=== PATIENT | female | born 1965 | race Caucasian/White ===

== ENCOUNTER 2016-08-21 08:04 | Emergency (ER) | payer OTHER ==
[2016-08-21 08:20] VITALS: BP 117/78; PULSE 104; RESP 18; TEMP 97.9; O2SAT 98
--- NOTE | 2016-08-21 08:25 | UCPHY ---
H & P Patient Type: Established Chief Complaint Nursing Narrative: sinus congestion/pressure, headache, cough x 3 weeks Time Seen by Provider: 08/21/16 08:15 HPI/ROS: Chief complaint: Sinus pressure, headache HPI: Patient is presenting with 3 weeks of headache behind her eyes, sinus congestion, cough and throat clearing. Patient's has been using over-the- counter nasal sprays with minimal relief. Ears feel little bit congested. No fevers or chills. Has had persistent facial headache. No nausea or vomiting. ROS: 10 point Review of Systems is negative except as noted in the HPI. Past medical history: Asthma Medications: Xopenex Allergies: No known drug allergies Social history: Nonsmoker, occasional alcohol Physical exam: Gen: Awake, Alert, No Distress HEENT: She has tenderness to percussion over the left maxillary and left frontal sinus Nose: no rhinorrhea Eyes: PERRLA, EOMI Mouth: Moist mucosa Neck: Supple, no JVD Chest: nontender, mild diffuse expiratory wheeze Skin: no rash Neuro: CN II-XII intact, Sensation grossly intact, Strength 5/5 in bilateral upper and lower extremities - Personal History LMP (Females 10-55): Hysterectomy Tetanus Vaccine Date: WITHIN 10 YRS - Medical/Surgical History Hx Asthma: Yes Hx Diabetes: No Other PMH: asthma, heart valve disease - Family History Significant Family History: No pertinent family hx - Social History Smoking Status: Never smoked Constitutional: Initial Vital Signs Temperature (C) 36.6 C 08/21/16 08:16 Heart Rate 104 H 08/21/16 08:16 Respiratory Rate 18 08/21/16 08:16 Blood Pressure 117/78 08/21/16 08:16 O2 Sat (%) 98 08/21/16 08:16 O2 Delivery Mode Room Air Allergies/Adverse Reactions: No Known Allergies Allergy (Verified 10/23/14 09:15) Home Medications: Medication Instructions Recorded Levalbuterol 0.63 mg [Xopenex 10/23/14 0.63MG Neb (RX)] Amoxicillin 500 mg PO TID 10 Days 08/21/16 Fluticasone Nasal [Flonase Nasal 2 sprays NASAL DAILY #1 mdi 08/21/16 [place] (RX)] Departure - Departure Disposition: Home, Routine, Self-Care Clinical Impression: Sinusitis Condition: Good Instructions: Sinusitis (ED) Additional Instructions: Use Flonase daily. Take your full course of antibiotics. You may use [id number] decongestants such as phenylephrine according to label instructions. Follow up with her primary care physician in about a week for recheck. Referrals: Camila Linton MD [Primary Care Provider] - As per Instructions Prescriptions: Amoxicillin 500 mg PO TID 10 Days Fluticasone Nasal [Flonase Nasal [place] (RX)] 2 sprays NASAL DAILY #1 mdi - PQRS PQRS Measurement: NA
== END 2016-08-21 08:36 | disposition home or self-care (01) ==
LOC: CED 08:04
DX: J32.9 Chronic sinusitis, unspecified (principal)
CPT/HCPCS: 99214-PO; G0463-PO

== ENCOUNTER → 2017-03-11 | Outpatient (CLI) | payer OTHER | LOC: CIMAGING 14:28 | PROVIDERS: ATTEND Family Medicine | DX: M25.511 Pain in right shoulder (principal); R07.81 Pleurodynia | CPT/HCPCS: 71101-PO; 73010-PO; 73030-PO ==

== ENCOUNTER → 2017-03-20 | Outpatient (CLI) | payer OTHER | LOC: CIMAGING 11:43 | PROVIDERS: ATTEND Family Medicine | DX: M53.3 Sacrococcygeal disorders, not elsewhere classified (principal); M54.5 Low back pain | CPT/HCPCS: 72100-PO; 72170-PO ==

== ENCOUNTER 2018-08-30 11:16 | Emergency (ER) | payer OTHER ==
[2018-08-30] MEDS ORDERED: IBUPROFEN 600 MG TAB PO ONE (11:54)
--- NOTE | 2018-08-30 12:43 | EDPHY ---
H & P Time Seen by Provider: 08/30/18 11:34 HPI/ROS: CHIEF COMPLAINT: Right knee pain, right ankle pain, left back History by patient HISTORY OF PRESENT ILLNESS: 52-year-old woman presents complaining of pain and swelling in her right knee, ankle and left back after slipping off a ladder and falling down a carpeted flight of stairs 3 days ago. Patient denies hitting her head or losing consciousness. She was able to get up on her own but said that she had some much pain she could barely get out of bed the following day. She has been ambulatory on her leg. She has been taking ibuprofen with some relief and using ice with some relief. She locates her knee pain mostly to the medial sided describes shooting pains upper thigh from the medial side of her knee. She denies any numbness tingling or weakness. She localizes her ankle pain to the posterior aspect of her ankle. She complains of pain in her left mid back over the posterior ribs. She says initially it hurt to breathe then but this has improved with time. She denies any shortness of breath currently. REVIEW OF SYSTEMS: As in HPI, and all other systems reviewed and are negative Smoking Status: Never smoked Physical Exam: General Appearance: Alert, nontoxic-appearing, comfortable. Head: normocephalic, atraumatic Eyes: Pupils equal and round, reactive to light, no pallor or injection. Extraocular movements intact TMs: Clear bilaterally, no hemotympanum Mouth: Mucous membranes moist. Oropharynx clear, dentition intact Neck: Full range of motion, no bony tenderness Respiratory: Normal, effort, lungs are clear to auscultation. No wheezes, rales or rhonchi. + posterior lateral mid rib tenderness, no anterior or sternal tenderness, no clavicular tenderness Cardiovascular: Regular rate and rhythm. S1, S2, no murmurs, gallops or rubs appreciated Gastrointestinal: Abdomen is soft and nontender, no masses, bowel sounds normal. Back: No CVA tenderness, no bony tenderness Neurological: Awake, alert and oriented x 3, no pronator drift, normal gait, no pronator drift, heel to carrion intact Skin: Warm and dry, no rashes. Musculoskeletal: Right hip full range of motion without pain actively and passively, Right knee with minimal swelling, decreased active range of motion secondary to pain, possible full range of passive motion with pain on valgus stress, tenderness along the medial joint line, no ligamental laxity detected, no lateral joint line tenderness; right ankle with minimal swelling, decreased range of motion acute of pain, positive posterior malleolar tenderness, no anterior tenderness, wiggles all toes, DP pulses 2+ and equal to left, distal sensation is intact Extremities: full range of motion, no edema, DP2+ bilat Psychiatric: Patient has normal affect, there is no agitation. Constitutional: Initial Vital Signs Temperature (C) 36.6 C 08/30/18 11:23 Heart Rate 82 08/30/18 11:23 Respiratory Rate 16 08/30/18 11:23 Blood Pressure 98/69 L 08/30/18 11:23 O2 Sat (%) 95 08/30/18 11:23 O2 Delivery Mode Room Air Allergies/Adverse Reactions: No Known Allergies Allergy (Verified 08/30/18 11:22) Home Medications: Medication Instructions Recorded Levalbuterol 0.63 mg [Xopenex 10/23/14 0.63MG Neb (RX)] Fluticasone Nasal [Flonase Nasal 2 sprays NASAL DAILY #1 mdi 08/21/16 [place] (RX)] Lidocaine [Lidoderm] 1 each TP DAILY PRN #30 adh..patch 08/30/18 MDM/Departure - MDM Imaging Results: Imaging Impressions Chest X-Ray 08/30/18 11:52 Impression: Normal. Medications Given: Discontinued Medications Ibuprofen (Motrin) 600 mg PO EDNOW ONE Stop: 08/30/18 11:55 Last Admin: 08/30/18 12:16 Dose: 600 mg ED Course/Re-evaluation: 52-year-old woman presents after a fall down stairs 3 days ago with persistent left upper chest, right knee and right ankle pain. X-rays were obtained which showed no evidence of acute fractures. There is no evidence of respiratory compromise. Patient was given ibuprofen 8 anemia with some relief. I suspect medial collateral strain. Patient was placed in a knee immobilizer and we discussed home care and conservative measures. She is discharged home in stable condition. - Depart Disposition: Home, Routine, Self-Care Clinical Impression: Contusion of rib on left side Qualifiers: Encounter type: initial encounter Qualified Code(s): S20.212A - Contusion of left front wall of thorax, initial encounter Sprain of right knee Qualifiers: Encounter type: initial encounter Involved ligament of knee: medial collateral ligament Qualified Code(s): S83.411A - Sprain of medial collateral ligament of right knee, initial encounter Right ankle sprain Qualifiers: Encounter type: initial encounter Involved ligament of ankle: unspecified ligament Qualified Code(s): S93.401A - Sprain of unspecified ligament of right ankle, initial encounter Condition: Good Instructions: Ankle Sprain (ED), Knee Sprain (ED), Rib Contusion (ED) Additional Instructions: You were seen by Dr. Yana Marks today. Your x-ray showed no evidence of fracture. I recommend continue to take ibuprofen 600 mg up to 4 times a day as needed for pain. Continue to ice your joint as needed for comfort. You may try topical lidocaine patches for pain, especially on your ribs. You may put as much weight as you can tolerate on her knee and ankle. Wear the knee brace for comfort as needed. Your xray showed what is likely a "bone island" on your femur but this requires follow up with a bone scan. Please have Dr. Jernigan order this test for you. Please follow up with her primary care physician Dr. Jernigan as scheduled on September 17. Return for any worsening or new concerns. Prescriptions: Lidocaine [Lidoderm] 1 each TP DAILY PRN #30 adh..patch PRN Reason: pain Referrals: Bernice Jernigan MD [Primary Care Provider] - As per Instructions
[2018-08-30 13:32] VITALS: BP 106/71
== END 2018-08-30 12:47 | disposition home or self-care (01) ==
LOC: CED 11:16
DX: S83.411A Sprain of medial collateral ligament of right knee, initial encounter (principal); S93.401A Sprain of unspecified ligament of right ankle, initial encounter; S20.212A Contusion of left front wall of thorax, initial encounter; W11.XXXA Fall on and from ladder, initial encounter; W10.8XXA Fall (on) (from) other stairs and steps, initial encounter; Y92.9 Unspecified place or not applicable
CPT/HCPCS: 71046-PO; 73564-PO; 73610-PO; 99284-ER; L1830-ER

== ENCOUNTER → 2018-09-24 | Outpatient (CLI) | payer OTHER | LOC: FIMAGING 09:13 | PROVIDERS: ATTEND Family Medicine | DX: M89.9 Disorder of bone, unspecified (principal) | CPT/HCPCS: A9503 ==

== ENCOUNTER → 2018-10-06 | Outpatient (CLI) | payer OTHER ==
[~2018-10-06] MED LIST: GADOBUTROL 10 ML VIAL IVP ONE
== END ==
LOC: FIMAGING 10:51
PROVIDERS: ATTEND Family Medicine
DX: R94.8 Abnormal results of function studies of other organs and systems (principal); M89.9 Disorder of bone, unspecified
CPT/HCPCS: A9585

== ENCOUNTER → 2018-11-02 | Outpatient (CLI) | payer OTHER | LOC: CIMAGING 13:57 ==